=== PATIENT | female | born 1980 | race Caucasian/White ===

== ENCOUNTER 2023-06-17 18:33 | Emergency (ER) | payer BC, SELFPAY ==
[2023-06-17] VITALS (12 sets, daily range): BP systolic 164–176; BP diastolic 112–123; PULSE 72–113; RESP 18–20; TEMP 36.6–37.1; O2SAT 97–100
--- NOTE | ~2023-06-17 | CT_ITS ---
EXAMINATION: CT lumbar spine wo con DATE: 06/17/2023 20:06 INDICATION: Low back pain. Fall. TECHNIQUE: Computed tomography (CT) of the lumbar spine was performed without intravenous contrast. A utomated exposure control and iterative reconstruction technique were employed. The dose-length produ ct was 172.41 mGy-cm. COMPARISON: None FINDINGS: There is 20 degrees levoscoliosis of lumbar spine. There are changes of anterior fusion pro cedure from T11 to L4 with interbody devices and left-sided juan and vertebral body screws. There is s everely decreased disc height at L4-L5 and mildly decreased disc height at L5-S1. There is mild chron ic height loss of T11 vertebral body. The following disc levels are specifically discussed: T11-T12 through L3-L4: There is no facet joint hypertrophy. There is no neural foraminal stenosis. Th ere is no central canal stenosis. L4-L5: The disc is bulging. There is severe bilateral facet joint osteoarthritis. There is mild bilat eral neural foraminal stenosis. There is mild central canal stenosis. L5-S1: The disc is bulging. There is moderate right and mild left facet joint osteoarthritis. There i s mild bilateral neural foraminal stenosis. There is mild central canal stenosis. IMPRESSION: 1. Severe lower lumbar spondylosis. 2. Anterior fusion procedure from T11 to L4. 3. Lumbar levoscoliosis. Reviewed, dictated and finalized at location E. [facility] [employer]
--- NOTE | ~2023-06-17 | CT_ITS ---
EXAMINATION: CT abdomen pelvis wo con DATE: 06/17/2023 20:05 INDICATION: Low back pain. Fall. TECHNIQUE: Computed tomography (CT) of the abdomen and pelvis was performed without intravenous contr ast. Automated exposure control and iterative reconstruction technique were employed. The dose-length product was 184.52 mGy-cm. COMPARISON: None. FINDINGS: The visualized portions of the lung bases are clear without pneumonia or pleural effusion. The heart size is normal. No pericardial effusion. The liver, gallbladder, spleen, pancreas, and adre nal glands are normal. There are approximately 4 stones in right kidney measuring up to 3 mm. There i s a 2 mm stone in left kidney. There are no dilated loops of bowel. The appendix is not visualized. T here are no pathologically enlarged lymph nodes. There is no free intraperitoneal fluid. There is lum bar levoscoliosis. There are changes of anterior fusion procedure from T11 to L4. There is mild chron ic height loss of T11 vertebral body. There is severe degenerative disc disease at L4-L5. IMPRESSION: 1. No acute posttraumatic findings. Reviewed, dictated and finalized at location E. RVISOR YARD
[2023-06-17 19:22] LABS: Basophils Absolute Auto 0.02 K/mm3 (0.00-0.10); Basophils Percent Auto 0.3 % (0.0-1.0); Eosinophils Absolute Auto 0.06 K/mm3 (0.02-0.50); Hemoglobin 12.3 g/dL (12.0-15.0); Immature Granulocyte Absolute 0.06 K/mm3 (0.00-0.00); Lymphocytes Absolute Auto 1.84 K/mm3 (1.10-4.50); Lymphocytes Percent Auto 29.7 % (18.0-42.0); Mean Corpuscular HGB Conc 31.5 g/dL (32.0-36.0); Mean Corpuscular Volume 85.5 fL (78.0-102.0); Mean Platelet Volume 11.2 fl (9.2-11.8); Monocytes Absolute Auto 0.46 K/mm3 (0.10-0.90); Monocytes Percent Auto 7.4 % (2.0-11.0); Neutrophils Absolute Auto 3.8 K/mm3 (1.7-7.2); Neutrophils Percent Auto 60.6 % (50.0-70.0); Platelet Count Result 186 K/mm3 (150-420); Red Blood Count 4.56 M/mm3 (4.20-5.40); Red Cell Distribution Width 15.2 % (11.6-14.4); White Blood Count 6.2 K/mm3 (4.8-10.8)
[2023-06-17 19:33] LABS: Appearance Urine Clear (Clear); Bilirubin Urine Negative (Negative); Blood Urine Trace-Intact (Negative); Color Urine Light Yellow (Yellow); Glucose Urine UA Negative (Negative); Ketones Urine Negative (Negative); Leukocyte Esterase Ur 1+ LEU/UL (Negative); Nitrate Urine Negative (Negative); Protein Urine 1+ (Negative); Specific Grav Ur 1.025 (1.010-1.020); Urobilinogen Urine 0.2 mg/dL (0.2-1.0)
[2023-06-17 19:37] LABS: Add Urine Microscopic? YES; Bacteria Urine 2+ /hpf; Squamous Epithelial Cell Urine Few /hpf (Few)
[2023-06-17 19:43] LABS: Alanine Aminotransferase 33 U/L (14-59); Albumin Level 3.5 g/dL (3.4-5.0); Alkaline Phosphatase 77 U/L (46-116); Anion Gap 7 mmol/L (8-16); Aspartate Amino Transferase 12 U/L (15-37); Bilirubin,Total 0.3 mg/dL (0.00-1.00); Blood Urea Nitrogen 20 mg/dL (7-18); Calcium 9.2 mg/dL (8.5-10.1); Carbon Dioxide 31 mmol/L (21-32); Chloride 102 mmol/L (98-108); Estimated CRCL calculation 53 ml/min; Estimated Glomerular Filt Rate 58; Glucose 95 mg/dL (70-99); Osmolality Calculated 292 mOsm/kg (285-295); Potassium 3.5 mmol/L (3.5-5.1); Sodium 140 mmol/L (136-145); Total Protein 6.8 g/dL (6.4-8.2)
--- NOTE | 2023-06-17 19:56 | PC.NURSE ---
pt able to ambulate to bathroom with personal walker.
[2023-06-17 20:02] LABS: SARS-CoV-2 RNA PCR Negative (Negative)
[2023-06-17 20:04] LABS: Influenza A QL RT-PCR Negative (Negative); Influenza B QL RT-PCR Negative (Negative); RSV RNA, RT-PCR Negative (Negative); Strep Group A RT-PCR NOT DETECTED (Negative)
--- NOTE | 2023-06-17 20:19 | ED.BACK ---
HPI - Back Pain/Injury General Chief Complaint: Back Pain/Injury Stated Complaint: Shortness of breath and back pain Time Seen by Provider: 06/17/23 18:47 Source: patient Mode of arrival: ambulatory Limitations: no limitations History of Present Illness HPI Narrative: This is a 43-year-old female with some chronic back pain that presents with some generalized weakness and just not feeling well had a fall approximately 1 week ago causing pain to her lower there is some dysuria with no hematuria does have some flank discomfort with no nausea vomiting no fever chills no shortness of breath no chest pain. MD elicited complaint: back pain Pertinent past history: prior back pain Onset (ago): day(s) Timing: constant Severity: mild Similar Symptoms Previously: Yes Location: lumbar spine Related Data Allergies Allergy/AdvReac Type Severity Reaction Status Date / Time erythromycin base Allergy Unknown Verified 06/17/23 20:24 metoclopramide [From Reglan] Allergy Unknown Verified 06/17/23 20:24 nut - unspecified Allergy Unknown Verified 06/17/23 20:24 Review of Systems Review of Systems: All systems reviewed & are unremarkable except as noted in HPI and below PMFSH Past Medical History Medical History HTN (hypertension) Exam Const: General: no acute distress Nutritional Appearance: thin Limitations: no limitations HENMT: Head: normal to inspection Eyes: Conjunctivae: conjunctivae normal Resp: Effort & Inspection: normal respiratory effort Auscultation: clear to auscultation bilaterally Cardio: Rate: regular rate Rhythm: regular rhythm GI: Auscultation: normal bowel sounds : General: Yes bladder normal to palpation and Yes CVA tenderness Urinary Catheter: Urinary Catheter: patent and draining Back/Spine/Pelvis: Back: CVA tenderness Skin: General skin exam: normal color Rashes: no rashes Wounds: no wounds Neuro: General: patient oriented x3 and moves all extremities Other: L4 left paravertebral tenderness with palpation with negative straight leg raising test Extrem: General: normal to inspection and no clubbing, cyanosis or edema Course Course Emergency Course: labs performed showed no acute abnormalities, urinalysis shows urinary tract infection will give patient a dose of p.o. antibiotic, blood pressure is elevated, her blood pressure 173 patient is noncompliant with her medication will give her a dose of metoprolol 50mg. CT scan abdomen and pelvis and lumbar spine reviewed patient. Vital Signs Vital signs: Vital Signs Temperature 36.6 C 06/17/23 18:33 Pulse Rate 113 H 06/17/23 18:33 Respiratory Rate 18 06/17/23 18:33 Blood Pressure 176/116 H 06/17/23 18:33 Pulse Oximetry 100 06/17/23 18:33 Oxygen Delivery Room Air 06/17/23 18:33 Temperature 36.6 C 06/17/23 18:33 Pulse Rate 90 06/17/23 20:06 Respiratory Rate 20 06/17/23 20:06 Blood Pressure 173/113 H 06/17/23 20:06 Pulse Oximetry 100 06/17/23 20:06 Oxygen Delivery Room Air 06/17/23 19:31 MDM - Back Pain/Injury Lab Data 06/17/23 19:18 06/17/23 19:18 Labs: Lab Results 06/17/23 Range/Units 19:18 WBC 6.2 (4.8-10.8) K/mm3 RBC 4.56 (4.20-5.40) M/mm3 Hgb 12.3 (12.0-15.0) g/dL Hct 39.0 (35.0-49.0) % MCV 85.5 (78.0-102.0) fL MCH 27.0 (27.0-31.0) pg MCHC 31.5 L (32.0-36.0) g/dL RDW 15.2 H (11.6-14.4) % Plt Count 186 (150-420) K/mm3 MPV 11.2 (9.2-11.8) fl Immature Gran % (Auto) 1.0 H (0.0-0.0) % Neut % (Auto) 60.6 (50.0-70.0) % Lymph % (Auto) 29.7 (18.0-42.0) % Gonzales % (Auto) 7.4 (2.0-11.0) % Eos % (Auto) 1.0 (1.0-6.0) % Baso % (Auto) 0.3 (0.0-1.0) % Lymph # (Auto) 1.84 (1.10-4.50) K/mm3 Gonzales # (Auto) 0.46 (0.10-0.90) K/mm3 Eos # (Auto) 0.06 (0.02-0.50) K/mm3 Baso # (Auto) 0.02 (0.00-0.10) K/mm3 Abs Immat Gran (auto) 0.06 H (0.00-0.00)
[2023-06-17] MEDS: METOPROLOL TARTRATE 50 MG TAB PO (20:29)
[2023-06-17] MEDS: NITROFURANTOIN MONOHYD MACROCR 100 MG CAP PO (20:34)
--- NOTE | 2023-06-17 20:36 | PC.NURSE ---
cottage cheese and fruit cup provided per pt request. ambulated to bathroom with walker.
--- NOTE | 2023-06-17 21:04 | PC.NURSE ---
spoke with pt mother, nina , . 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 i am not coming to pick her up she knows that
--- NOTE | 2023-06-17 21:16 | PC.NURSE ---
call placed to [facility] some gave all [phone] awaiting return call.
--- NOTE | 2023-06-17 23:16 | PC.NURSE ---
no return from taxi service. pt resting per cot and has been up to bathroom frequently independently.
--- NOTE | 2023-06-18 00:54 | PC.NURSE ---
pt sleeping in room, call lemus in reach if needed.
--- NOTE | 2023-06-18 02:43 | PC.NURSE ---
pt sleeping, resp even unlabored. call lemus in reach. left undisturbed.
--- NOTE | 2023-06-18 07:00 | PC.NURSE ---
pt awake and moved to lobby. explained would have case management assist with finding ride home. message left with [employer], case management. message left on machine of taxi again.
== END 2023-06-17 23:30 | disposition home or self-care (01) ==
PROVIDERS: Emergency Provider Emergency Medicine; PCP Family Medicine
DX: S39.012A Strain of muscle, fascia and tendon of lower back, initial encounter (principal); N39.0 Urinary tract infection, site not specified; I10 Essential (primary) hypertension; Z20.822 Contact with and (suspected) exposure to COVID-19; W19.XXXA Unspecified fall, initial encounter
CPT/HCPCS: 36415; 72131; 74176; 80053; 81001; 85025; 87086; 87637; 87651; 99284; A9270